=== PATIENT | male | born 1960 | race Caucasian/White ===

== ENCOUNTER 2023-07-19 14:03 | Emergency (ER) | payer OTHER, SELFPAY ==
--- NOTE | ~2023-07-19 | XR_ITS ---
EXAMINATION: XR HAND, LEFT CLINICAL INFORMATION: Unable to bend fingers. Left hand pain. COMPARISON: None available. TECHNIQUE: PA, lateral, and oblique views of the left hand. FINDINGS: The bones and soft tissues are normal. No fracture. Alignment is anatomic. Joint spaces are maintained. No erosions or soft tissue calcifications. XR/XR hand LT min 3V IMPRESSION: Unremarkable left hand.
--- NOTE | 2023-07-19 14:25 | ED_ITS ---
HPI - General Adult General Chief complaint: Extremity Injury, Upper Stated complaint: hand pain Time Seen by Provider: 07/19/23 15:51 Source: patient, RN notes reviewed and old records reviewed Mode of arrival: ambulatory History of Present Illness HPI narrative: 63-year-old male with past medical history of ETOH abuse/dependence presenting to the ED complaining of left hand pain/swelling s/p mechanical trip and fall 3 weeks ago. Patient admits he was recently admitted to [facility] for ETOH dependence/withdrawal. Denies more recent injury, history of gout, fever/chills, weakness, numbness/tingling Onset (ago): week(s) Related Data Previous Rx's Medication Instructions Recorded naproxen 500 mg tablet 500 mg PO BID PRN pain 10 days #20 07/19/23 tabs prednisone 20 mg tablet 40 mg PO DAILY 5 days #10 tabs 07/19/23 Allergies Allergy/AdvReac Type Severity Reaction Status Date / Time Penicillins [PENICILLINS] Allergy Unknown RASH Verified 07/19/23 14:25 Review of Systems Review of Systems: Constitutional:No Fever, No Chills ENT/Mouth: No Ear Pain, No Nasal Congestion, No sore throat, No Rhinorrhea, No Swallowing Difficulty Cardiovascular: No Chest Pain, No SOB Respiratory: No Cough, No Sputum, No Wheezing Gastrointestinal: No Nausea, No Vomiting, No Diarrhea, No Constipation, No Abdominal pain Musculoskeletal: + joint pain, No Myalgias, + Joint Swelling Skin: No Skin Lesions, No rash Neuro: No Weakness, No Numbness, No Paresthesias Yes all other systems are reviewed and are negative Constitutional: Constitutional: Reports as per [facility] Past Medical History Attestation statement: The following information was validated with the patient. Source: old records reviewed Social History Social History Advance Directives: No Advance Directives Information Provided: No Physical Exam ED Vital Signs: Vital Signs - 24 hr 07/19/23 14:26 Temperature 98 F Pulse Rate 100 Respiratory Rate 19 Blood Pressure 117/76 Pulse Oximetry 98 Oxygen Delivery Method Room Air BMI result Body Mass Index 20.9 Const General: cooperative, healthy appearing and no acute distress Orientation/consciousness: patient oriented x3 Limitations: no limitations HENMT Head: Yes normal to inspection and Yes atraumatic Ears: hearing grossly normal bilaterally General nose exam: Normal external nose present Face and sinus: Yes normal facial exam Eyes General: appearance normal, both eyes and all related structures EOM: EOMs intact bilaterally Neck Neck: Yes normal visual inspection and Yes no meningeal signs Resp Effort & Inspection: normal respiratory effort and no respiratory distress Cardio Rate: regular rate Heart sounds: S1 normal heart sound present and S2 normal heart sound present Peripheral pulses: radial pulses present and ulnar radial pulses present Skin Rashes: no rashes Wounds: no wounds Neuro Other: no tongue fasiculations or tremors General: patient oriented x3, tone normal and no meningeal signs Cranial nerves: Yes CN's II-XII intact bilaterally Gait exam (Neuro): Normal gait present Extrem Other: Left hand with diffuse swelling > 2-4th MCPs/digits. Diffusely tender to palpation. No erythema/warmth. Limited flexion of digits secondary to pain/swelling. No fluctuance/induration or crepitus. Neurovascularly intact. No snuffbox tenderness. Wrist nontender. Course Course Course Narrative: RME performed by Joseline Goss PA-C. Patient is a 63 year old assigned male at presenting to the emergency department with left hand pain. Imaging ordered. Patient placed back in the waiting room pending room availability and results. XR hand LT min 3V IMPRESSION: Unremarkable left hand. Results discussed with patient including worrisome signs and symptoms and strict return precautions, and when to return to the emergency department. They verbalized understanding and feel safe for discharge at this time. Medical Decision Making Medical Decision Making MDM Narrative: 63-year-old male with past medical history of ETOH abuse/dependence presenting to the ED complaining of left hand pain/swelling s/p mechanical trip and fall 3 weeks ago. On exam vital signs stable, NAD, nontoxic appearing, physical exam as noted above with diffuse left hand/digits swelling and tenderness. Limited ROM secondary to pain/swelling. No erythema/warmth. Concern for osteoarthritis vs ? Gout. Rule out subacute fracture. Low suspicion for septic joint/arthritis, abscess Plan: X-rays Please refer to course for remaining clinical decision making, interpretation of labs/imaging results, and discussions with consultants and/or family members. Differential Diagnosis Differential Diagnoses: The differential diagnosis associated with the presentation includes As above Independent Interpretation I performed an independent interpretation of an: Plain X-Ray Radiology Impression Discussion of test interpretation with radiology: I have reviewed the radiologist's reading. External Record Review External record reviewed: Inpatient record, Office record, Outpatient record, Prior outpatient labs, Prior outpatient radiology, Primary care record and Outside ED record Tests considered The following testing was considered but not selected: As above Prescription Management I considered prescription management with: Pain Medication and Antibiotic Discharge Plan Discharge Clinical Impression: Hand pain, Gout Patient Disposition: Home, Self-Care Instructions: Gout (ED), Arthralgia (ED) Additional Instructions: Your x-ray is unremarkable Prednisone is steroid please take as prescribed Naproxen as an anti-inflammatory/pain medication take, take with food & follow- up with orthopedics If symptoms persist or worsen or area begins look inflamed return to the ED Prescriptions: New prednisone 20 mg tablet 40 mg PO DAILY 5 Days Qty: 10 0RF naproxen 500 mg tablet 500 mg PO BID PRN (Reason: pain) 10 Days Qty: 20 0RF [place] [facility] [place] [facility] [place]Provider Group]
[2023-07-19 14:26] VITALS: BP 117/76; PULSE 100; RESP 19; TEMP 36.6; O2SAT 98; BMI 20.9
== END 2023-07-19 17:17 | disposition home or self-care (01) ==
PROVIDERS: Emergency Provider Emergency Medicine Emergency Medical Services
DX: M79.642 Pain in left hand (principal); M10.9 Gout, unspecified
CPT/HCPCS: 73130; 99283

== ENCOUNTER 2023-10-24 16:13 | Emergency (ER) | payer OTHER, SELFPAY ==
[2023-10-24 16:17] VITALS: BP 121/86; PULSE 89; RESP 18; TEMP 36.8; O2SAT 96; BMI 19.7
--- NOTE | 2023-10-24 16:20 | ED_ITS ---
HPI - Dental/Oral General Chief complaint: Dental/Oral Stated complaint: toothpain Time Seen by Provider: 10/24/23 16:20 Source: patient Mode of arrival: ambulatory Limitations: no limitations History of Present Illness HPI Narrative: Patient is a 63-year-old male presenting to the emergency department with complaint of right lower jaw pain since this morning. He states he broke a crown and was unable to reach his dentist today due to the holiday. Denies fever, denies any difficulty swallowing. Denies any drainage or discharge. He has not taken any OTC medications for his pain. MD Complaint: tooth pain and tooth injury Teeth map: 2 1. broken crown Onset (ago): hour(s) Duration: constant Severity: severe Relieving factors: nothing Exacerbating factors: nothing Context: history of dental caries Treatment prior to arrival: none Related Data Previous Rx's Medication Instructions Recorded naproxen 500 mg tablet 500 mg PO BID PRN pain 10 days #20 07/19/23 tabs prednisone 20 mg tablet 40 mg (2 x 20 mg) PO DAILY 5 days 07/19/23 #10 tabs oxycodone 5 mg tablet 5 mg PO Q8H PRN pain #9 tabs 10/24/23 Allergies Allergy/AdvReac Type Severity Reaction Status Date / Time Penicillins [PENICILLINS] Allergy Unknown RASH Verified 10/24/23 16:23 Review of Systems 2 Review of Systems: As per HPI. Yes all other systems are reviewed and are negative Constitutional: Constitutional: Reports as per HPI Physical Exam 2 Vital Signs: Vital Signs: Vital signs have been reviewed and appear to be correct. Blood pressure normal. Heart rate normal. Respiratory rate normal. Temperature normal. Oxygen saturation normal. Const: General: cooperative, healthy appearing and no acute distress O rientation/consciousness: oriented to person, oriented to place, oriented to time and patient oriented x3 Limitations: no limitations HEENT: Head: Yes normocephalic and Yes atraumatic Ears: external ears normal General nose exam: Normal external nose present Face and sinus: Yes face symmetric Mouth: oropharynx normal and moist mucous membranes Teeth and gingiva: poor dentition Teeth image: 1. broken crown, no edema or fluctuance Throat: Yes posterior oropharynx normal, Yes uvula midline and No uvular edema Eyes: Pupils: Equal, round and reactive pupils present Neck: Neck: Yes normal visual inspection, Yes full ROM and Yes supple L ymphatic: no lymphadenopathy noted Resp: Effort & Inspection: normal respiratory effort and able to speak in complete sentences Auscultation: clear to auscultation bilaterally Cardio: Rate: regular rate Rhythm: regular rhythm Heart sounds: S1 normal heart sound present and S2 normal heart sound present Skin: General skin exam: elasticity normal and turgor normal Neuro: General: oriented to person, oriented to place, oriented to time, patient oriented x3, moves all extremities, no focal motor deficits and CN's II- XI intact bilaterally Cranial nerves: Yes Equal, round and reactive pupils present Cognition (Neuro): normal cognition Extrem: General: Yes full ROM, Yes no pedal edema and Yes no calf tenderness Psych: Mental Status: mental status grossly normal Affect: normal affect Thought process: Normal thought process present Medical Decision Making Medical Decision Making MDM Narrative: Patient is a 63-year-old male presenting to the emergency department with complaint of right lower jaw pain since this morning. On exam patient is awake, A+Ox3, VS WNL, afebrile, normal neurological exam without focal deficits, physical exam findings as above. Given reported symptoms and physical exam findings, initial differential includes dental pain, dental infection, dental abscess. No evidence of infection or abscess on physical exam. INSPECTOR PROCESS reviewed. Will prescribe short course of oxycodone, advised patient to alternate Tylenol and ibuprofen and contact dentist tomorrow for an appointment. Return precautions discussed. Patient verbalized understanding of and agreement with plan. Differential Diagnosis Differential Diagnoses: The differential diagnosis associated with the presentation includes As per MDM. External Record Review External record reviewed: Inpatient record, Office record and Outpatient record Prescription Management I considered prescription management with: Pain Medication Discharge Plan Discharge Clinical Impression: Toothache Patient Disposition: Home, Self-Care Instructions: Toothache (ED) Additional Instructions: You were evaluated in the emergency department today for dental pain related to a broken crown. You should use 650 mg Tylenol or 600 mg ibuprofen every 6 hours as needed for pain. If necessary, you can alternate these medications every 3 hours. For example, at noon take Tylenol, then at 3:00 p.m. take ibuprofen, then at 6:00 p.m. take Tylenol, etc..You are being prescribed oxycodone for severe pain. It is important that you call your dentist to schedule an appointment as soon as possible. Return to the emergency department if you develop swelling, increased pain, difficulty swallowing, shortness of breath, fever or any other concerning symptoms. Prescriptions: New oxycodone 5 mg tablet 5 mg PO Q8H PRN (Reason: pain) Qty: 9 0RF Rx Instructions: Partial Fill upon patient request. No Action prednisone 20 mg tablet 40 mg PO DAILY 5 Days Qty: 10 0RF naproxen 500 mg tablet 500 mg PO BID PRN (Reason: pain) 10 Days Qty: 20 0RF
[2023-10-24] MEDS: Ibuprofen 600 MG TABLET PO (16:29)
[2023-10-24] MEDS: Acetaminophen 325 MG TABLET 975 MG PO (16:29)
== END 2023-10-24 16:31 | disposition home or self-care (01) ==
PROVIDERS: Emergency Provider Emergency Medicine
DX: K08.89 Other specified disorders of teeth and supporting structures (principal); F17.210 Nicotine dependence, cigarettes, uncomplicated; F12.90 Cannabis use, unspecified, uncomplicated
CPT/HCPCS: 99283

== ENCOUNTER 2023-11-04 06:16 | Inpatient (IN) | payer OTHER, SELFPAY ==
[2023-11-04 06:27] VITALS: BP 118/77; PULSE 80; PULSE 87; RESP 17; TEMP 36.6; O2SAT 98; BMI 21.8
[2023-11-04 07:07] LABS: Appearance Urine Clear; Color Urine Yellow; Glucose Urine UA Negative (Negative); Leukocyte Esterase Urine Negative (Negative); Nitrite Urine Negative (Negative); PH 5.5 (5.0-9.0); Specific Gravity - Urine >= 1.030 (1.005-1.025); Urine Blood Negative (Negative); Urine Ketones 15 mg/dL (Negative); Urine Protein Negative (Neg-Trace)
[2023-11-04 07:10] LABS: Amphetamine Screen Urine Not Detected (Not Detect); Barbiturates, Urine Not Detected (Not Detect); Benzodiazepines Screen Urine Not Detected (Not Detect); Cannabinoid Screen Urine POSITIVE (Not Detect); Cocaine Screen Urine POSITIVE (Not Detect); Fentanyl, urine Not Detected (Not Detect); Opiate Screen Urine Not Detected (Not Detect); Phencyclidine Screen Urine Not Detected (Not Detect)
[2023-11-04 07:18] LABS: MANUAL DIFF FLAG NO
[2023-11-04 07:19] LABS: Basophils Absolute Auto 0.1 X10*3/uL (0.0-0.2); Basophils Percent Auto 0.9 % (0-2); Eosinophils Absolute Auto 0.2 X10*3/uL (0.0-0.4); Hematocrit 41.1 % (42.0-52.0); Imm Gran Abs Auto 0.11 X10*3/uL (0.00-0.03); Imm Gran Pct Auto 1.1 % (0.0-0.4); Lymphocytes Absolute Auto 2.3 X10*3/uL (1.2-4.9); Lymphocytes Percent Auto 21.6 % (20-40); Mean Corpuscular HGB Conc 34.1 g/dl (31.0-36.0); Mean Corpuscular Hemoglobin 30.7 pg (27.0-33.0); Mean Corpuscular Volume 90.1 fL (80.0-98.0); Mean Platelet Volume 9.8 fL (9.4-12.4); Monocytes Absolute Auto 1.2 X10*3/uL (0.1-1.2); Monocytes Percent Auto 11.2 % (2-11); Neutrophils Absolute Auto 6.6 x10*3/uL (2.0-8.3); Neutrophils Percent Auto 63.2 % (45-73); Platelet Count 282 X10*3/uL (160-400); Red Blood Count 4.56 X10*6/uL (4.60-5.80); Red Cell Distribution Width 13.1 % (11.0-16.0); White Blood Count 10.5 X10*3/uL (4.8-10.8)
[2023-11-04 07:36] LABS: Acetaminophen LAB < 3 mcg/mL (<30); Salicylate < 5.0 mg/dL (15-30)
[2023-11-04 07:37] LABS: Alanine Aminotransferase 22 U/L (0-40); Albumin Level 4.4 g/dL (3.5-5.0); Alkaline Phosphatase 83 U/L (39-117); Anion Gap 13 (12-20); Aspartate Amino Transferase 48 U/L (5-37); Bilirubin Total 0.8 mg/dL (0.0-1.0); Blood Urea Nitrogen 25 mg/dL (9-16); Calcium 9.6 mg/dL (8.4-10.2); Carbon Dioxide 22 mmol/L (22-29); Chloride 108 mmol/L (96-108); Creatinine Clr Calc Pharmacy 93.3; Estimated Glomerular Filt Rate > 60; Ethanol < 10 mg/dL; Glucose Random 86 mg/dL (60-115); Sodium 139 mmol/L (135-145); Total Protein 7.8 g/dL (6.5-8.0)
--- NOTE | 2023-11-04 07:46 | ED.PSYCH ---
HPI - Psych General Chief Complaint: Psychiatric Symptoms Stated Complaint: SI WITH PLAN Time Seen by Provider: 11/04/23 07:39 Source: patient and RN notes reviewed Mode of arrival: EMS Limitations: no limitations History of Present Illness HPI Narrative: patient states he is more depressed since suffering the loss of a family member and he has a recent court appointment for stealing a car. He is considering jumping off of a bridge to kill himself complaint: suicidal ideation and feels depressed Related Data Home Medications Medication Instructions Recorded Confirmed diclofenac sodium 1 % topical gel 1 ea topical QID PRN pain 11/04/23 11/04/23 (Arthritis Pain (diclofenac)) gabapentin 600 mg tablet 600 mg PO TID 11/04/23 11/04/23 hydroxyzine pamoate 25 mg capsule 25 mg PO TID PRN anxiety 11/04/23 11/04/23 sertraline 100 mg tablet 200 mg PO DAILY 11/04/23 11/04/23 trazodone 100 mg tablet 100 mg PO BEDTIME 11/04/23 11/04/23 Allergies Allergy/AdvReac Type Severity Reaction Status Date / Time Penicillins [PENICILLINS] Allergy Unknown RASH Verified 10/24/23 16:23 Review of Systems Review of Systems: Yes all other systems are reviewed and are negative Neurologic: Denies Sensory deficit (Neuro) [facility] Social History Social History Advance Directives: No Advance Directives Information Provided: No Healthcare Proxy: No Guardian: No Physical Exam Vital Signs: Vital Signs: Last Vital Signs Temp 97.9 F 11/04/23 06:27 Pulse 87 11/04/23 06:27 Resp 17 11/04/23 06:27 BP 118/77 11/04/23 06:27 Pulse Ox 98 11/04/23 06:27 O2 Del Method Room Air 11/04/23 06:27 BMI result Body Mass Index 21.8 Const: Other: thin unkept male in no acute distress Orientation/consciousness: oriented to person and patient oriented x3 Limitations: no limitations HEENT: Head: Yes normal to inspection Ears: external ears normal General nose exam: Normal external nose present Mouth: Normal oral and palatal mucosa present and oropharynx normal Throat: Yes posterior oropharynx normal Eyes: General: appearance normal, both eyes and all related structures Neck: Other: supple Neck: Yes normal visual inspection Chest: Chest palpation & inspection: normal inspection of the chest Resp: Auscultation: clear to auscultation bilaterally Cardio: Jugular venous distension: no JVD Rate: regular rate Rhythm: regular rhythm Heart sounds: S1 normal heart sound present and S2 normal heart sound present GI: Inspection: Yes normal to inspection Palpation (GI): Soft to palpation, nontender and No hepatosplenomegaly present Auscultation: normal bowel sounds : General: Yes no CVA tenderness Back/Spine/Pelvis: Back: no CVA tenderness Skin: General skin exam: no rashes or lesions noted Neuro: General: oriented to person and patient oriented x3 Cranial nerves: Yes CN's II-XII intact bilaterally Motor exam (neuro): 5/5 motor strength present throughout Sensory Exam: No Sensory deficit (Neuro) Extrem: General: Yes normal to inspection Psych: Appearance: grossly normal Course Reevaluation(s) Reevaluation #1: Physician observation started now as patient needs to be observed and evaluated to see if the patient remains suicidal or it improves. PE currently NAD resting comfortably Time: 07:48 Reevaluation #2: crisis to admit the patient Time: 10:38 Medications Administered Generic Name Dose Route Start Last Admin Trade Name Freq PRN Reason Stop Dose Admin Gabapentin 600 mg 11/04/23 10:30 11/04/23 11:06 Gabapentin 600 Mg Tablet PO 600 mg TID NEENA Administration Sertraline HCl 200 mg 11/04/23 10:30 11/04/23 11:06 Sertraline Hcl 100 Mg Tablet PO 200 mg DAILY NEENA Administration Medical Decision Making Differential Diagnosis Differential Diagnoses: The differential diagnosis associated with the presentation includes (depression, suicidal ideation, polysubstance abuse) Admission/Observation Consideration of admission/observation: Escalation of care including admission/observation considered (upon arrival patient considered for admission) Consult Healthcare Provider Management of the patient was discussed with: Behavioral Health Provider Lab Data 11/04/23 07:13 11/04/23 07:13 Labs: Lab Results 11/04/23 11/04/23 Range/Units 06:47 07:13 WBC 10.5 (4.8-10.8) X10*3/uL RBC 4.56 L (4.60-5.80) X10*6/uL Hgb 14.0 (14.0-18.0) g/dl Hct 41.1 L (42.0-52.0) % MCV 90.1 (80.0-98.0) fL MCH 30.7 (27.0-33.0) pg MCHC 34.1 (31.0-36.0) g/dl RDW 13.1 (11.0-16.0) % Plt Count 282 (160-400) X10*3/uL MPV 9.8 (9.4-12.4) fL Immature Gran % (Auto) 1.1 H (0.0-0.4) % Neut % (Auto) 63.2 (45-73) % Lymph % (Auto) 21.6 (20-40) % Wallace % (Auto) 11.2 H (2-11) % Eos % (Auto) 2.0 (0-4) % Baso % (Auto) 0.9 (0-2) % Lymph # (Auto) 2.3 (1.2-4.9) X10*3/uL Wallace # (Auto) 1.2 (0.1-1.2) X10*3/uL Eos # (Auto) 0.2 (0.0-0.4) X10*3/uL Baso # (Auto) 0.1 (0.0-0.2) X10*3/uL Abs Immat Gran (auto) 0.11 H (0.00-0.03) X10*3/uL Absolute Neuts (auto) 6.6 (2.0-8.3) x10*3/uL Absolute Nucleated RBC 0.000 (0.0-0.012) X10*3/uL Nucleated RBC % (auto) 0.0 (0.0-0.2) /100WBC Sodium 139 (135-145) mmol/L Potassium 4.0 (3.3-5.1) mmol/L Chloride 108 (96-108) mmol/L Carbon Dioxide 22 (22-29) mmol/L Anion Gap 13 (12-20) BUN 25 H (9-16) mg/dL Creatinine 0.86 (0.5-1.4) mg/dL Estim Creat Clear Calc 93.3 Estimated GFR > 60 Random Glucose 86 (60-115) mg/dL Calcium 9.6 (8.4-10.2) mg/dL Total Bilirubin 0.8 (0.0-1.0) mg/dL AST 48 H (5-37) U/L ALT 22 (0-40) U/L Alkaline Phosphatase 83 (39-117) U/L Total Protein 7.8 (6.5-8.0) g/dL Albumin 4.4 (3.5-5.0) g/dL Urine Color Yellow Urine Appearance Clear Urine pH 5.5 (5.0-9.0) Ur Specific [place] >= 1.030 H (1.005-1.025) Urine Protein Negative (Neg-Trace) mg/dL Urine Glucose (UA) Negative (Negative) mg/dL Urine Ketones 15 (Negative) mg/dL Urine Blood Negative (Negative) Urine Nitrite Negative (Negative) Ur Leukocyte Esterase Negative (Negative) Urine RBC 0-2 (0-2) /HPF Urine WBC 0-5 (0-5) /HPF Ur Squamous Epith Cells 0-2 (0-2) /HPF Urine Bacteria None Seen (None Seen) Hyaline Casts 0-2 (0-2) /LPF Salicylates < 5.0 L (15-30) mg/dL Urine Opiates Screen Not Detected (Not Detect) Urine Fentanyl Screen Not Detected (Not Detect) Acetaminophen < 3 (<30) mcg/mL Ur Barbiturates Screen Not Detected (Not Detect) Ur Phencyclidine Scrn Not Detected (Not Detect) Ur Amphetamines Screen Not Detected (Not Detect) U Benzodiazepines Scrn Not Detected (Not Detect) Urine Cocaine Screen POSITIVE H (Not Detect) U Marijuana (THC) Screen POSITIVE H (Not Detect) Ethyl Alcohol < 10 mg/dL Independent Historian Clinical information obtained from an independent historian. History obtained from or confirmed by: EMS Chronic Conditions Patient?s care impacted by: Other (polysubstance and depression) Discharge Plan Discharge Clinical Impression: Depression, Suicidal behavior Patient Disposition: Still a Patient Prescriptions: No Action gabapentin 600 mg tablet 600 mg PO TID sertraline 100 mg tablet 200 mg PO DAILY trazodone 100 mg tablet 100 mg PO BEDTIME hydroxyzine pamoate 25 mg capsule 25 mg PO TID PRN (Reason: anxiety) diclofenac sodium [Arthritis Pain (diclofenac)] 1 % gel 1 ea topical QID PRN (Reason: pain) Rx Instructions: apply to affected area up to 4 times daily PRN pain.
[2023-11-04 08:25] LABS: Bacteria Urine None Seen (None Seen); Hyaline Casts Urine 0-2 /LPF (0-2); RBC Urine 0-2 /HPF (0-2); Squamous Epithelial Cell Urine 0-2 /HPF (0-2); WBC Urine 0-5 /HPF (0-5)
--- NOTE | 2023-11-04 10:26 | MHC.CARE ---
Patient evaluated by the CARE Team and will need an inpatient psychiatric admission, provider updated.
--- NOTE | 2023-11-04 10:42 | PHA.MEDREC ---
Pharmacy Consult ? Medication Reconciliation Pharmacy has completed the medication reconciliation.PHARMACY HAS REVIEWED THE MED REC DONE BY NURSING
[2023-11-04] MEDS: Gabapentin 600 MG TABLET PO ×3 (11:06→20:55)
[2023-11-04] MEDS: Sertraline HCL 100 MG TABLET 200 MG PO (11:06)
--- NOTE | 2023-11-04 12:18 | ECG_ITS ---
Test Reason : CHECK PROLONG QT Blood Pressure : / mmHG Vent. Rate : 097 BPM Atrial Rate : 097 BPM P-R Int : 132 ms QRS Dur : 076 ms QT Int : 354 ms P-R-T Axes : 052 031 047 degrees QTc Int : 449 ms Normal sinus rhythm Normal ECG When compared with ECG of 17-APR-2004 11:10, T wave amplitude has decreased in Anterior leads Referred By: Joe Puri Electronically Signed By:DEBBY MURPHY
[2023-11-04 14:48] LABS: COVID-19 Test Negative (Negative); IDNOW Serial# BCCEAD1C
[2023-11-04 15:20] VITALS: RESP 18
--- NOTE | 2023-11-04 15:23 | PC.NURSE ---
Aly resting quietly on couch in back room for most of the shift. Compliant with medication. Requested diclufenac gel which is not available in hospital pharmacy. Aly utilizes hearing aids so important to make sure he can repeat information back to see that he is understanding it. C/o pain on the bottom of his foot which is chronic. Passive SI. Denies HI/AVH. No behavioral concerns noted.
[2023-11-04] MEDS: hydrOXYzine HCL 25 MG TABLET PO (20:56)
[2023-11-04] MEDS: Acetaminophen 325 MG TABLET 650 MG PO (20:56)
[2023-11-04] MEDS: traZODone HCL 100 MG TABLET PO (20:57)
--- NOTE | 2023-11-05 01:30 | PC.ADMIT ---
An Setswana-speaking white male, aged 63 years was [facility] at 1750 following referral from [facility] ED and CARE team. Pt reports several IPLOC at [facility] and elsewhere. Pt was brought to [facility] ED via EMT following pt calling 911 reporting suicidal thinking with a plan to jump off of a bridge. Pt had recently been at [facility] this past summer and reported that medications had been changed, but were no longer effective. Pt had been living at [facility], but had begun smoking marijuana and was worried that he would be drug tested. Pt left and did not return. Pt reported he used cocaine at that time in a binge. Pt has a history of Etoh and opioid use. Pt has not used Etoh since this past summer, when he wound up in a coma. Pt has been reported not to have used opioids since his last O/D seven years ago. Pt has a history of suicide attempt by hanging in which the rope broke. Pt reports anxiety and depression as very high. Pt denied current SI and said can seek help from staff. Pt denies AVH, but said is spiritual. Pt was cooperative during admission. Pt is soft spoken and [place] bilaterally using hearing aids. Pt reports trauma history and dissociation, but no formal diagnosis of PTSD. Pt says has not therapist or psychiatric med provider since Covid pandemic. Pt says is open to medication management and providers. Medical issues include: history of coma, left hand and right foot nerve pain, hearing loss bilaterally, left hand weakness and impairment, memory issues. [id number] done, admission orders obtained, skin check done, treatment plan done, but not signed. Safety tool still needs to be done. Pt is resting in room on 15 minute safety checks at this time.
[2023-11-05 08:30] VITALS: BP 113/74; PULSE 83; RESP 18; TEMP 36.9; O2SAT 96
[2023-11-05 08:51] LABS: Estimated Average Glucose 97 mg/dL
[2023-11-05 09:04] LABS: Alanine Aminotransferase 21 U/L (0-40); Albumin Level 4.1 g/dL (3.5-5.0); Alkaline Phosphatase 89 U/L (39-117); Aspartate Amino Transferase 38 U/L (5-37); Bilirubin Direct 0.3 mg/dL (0.0-0.5); Bilirubin Total 0.8 mg/dL (0.0-1.0); Cholesterol 159 mg/dL (<200); HDL Cholesterol 41 mg/dL (>40); LDL Cholesterol Calculated 100 mg/dL (<100); Total Protein 7.3 g/dL (6.5-8.0); Triglycerides 91 mg/dL (<150)
[2023-11-05 09:19] LABS: Free T4 (Free Thyroxine) 0.92 ng/dL (0.71-1.85); Thyroid Stimulating Hormone 1.65 uIU/mL (0.32-4.0)
[2023-11-05] MEDS: Sertraline HCL 100 MG TABLET 200 MG PO (09:48)
[2023-11-05] MEDS: Gabapentin 600 MG TABLET PO ×3 (09:48→19:58)
--- NOTE | 2023-11-05 10:06 | P.HPPS_ITS ---
HPI Date of Service: 11/05/23 Chief Complaint: SI Sources of Information: patient interviewed, chart reviewed and crisis/core team assessment reviewed HPI Subjective Notes: Nelson Warning and Conditional Voluntary Narrative: P atient?is?a?63-year-old?man?with?history?of?depression,?PTSD,?alcohol?abuse,?bran car?abuse,?history?of?motor?tics?who?presents?for?depression?and? S I?in?the?face?of?recent?homelessness.??Patient?reports?decades?long?history?of?s evere?alcohol?abuse?however?he?has?been?sober? f rom?alcohol?since?the?summer.??Patient?was?living?in?a?sober?house?but?was?also? smoking?cannabis?to?help?with?anxiety. H e?abruptly?left?the?sober?house,?knowing?he?would?have?to?give?a?urine?test?and? would?be?kicked?out?anyway?for?smoking?cannabis. P atient?has?been?homeless?for?few?days?smoked?crack?cocaine?which?he?says?he?has? not?done?for?years.??Patient?feeling?overwhelmed D eveloped?SI?so?self?presented.??Patient?reports?frequent?flashbacks?with?trauma, ?including?nightmares.??Patient?agrees?to?add Zyprexa?regimen. Past Psychiatric History: P ast?psych?admissions,?most?recently?at[facility]this?past?summer Med?history:??Wellbutrin,?Abilify Medical Evaluation Reviewed: Yes PMFSH Family History: Defer Social History: Currently?homeless? Brother?in?[place] Substance History: Decades?long?alcohol?dependence Trauma History: History?of?trauma;?patient?did?not?disclose Diagnostics Vital Signs (24Hr): Vital Signs - 24 hr 11/04/23 15:20 Respiratory Rate 18 BMI result Body Mass Index 21.8 Labs 11/04/23 07:13 11/04/23 07:13 Labs: Laboratory Results - last 48 hr 11/04/23 11/04/23 11/04/23 06:47 07:13 14:30 WBC 10.5 RBC 4.56 L Hgb 14.0 Hct 41.1 L MCV 90.1 MCH 30.7 MCHC 34.1 RDW 13.1 Plt Count 282 MPV 9.8 Immature Gran % (Auto) 1.1 H Neut % (Auto) 63.2 Lymph % (Auto) 21.6 Meeker % (Auto) 11.2 H Eos % (Auto) 2.0 Baso % (Auto) 0.9 Lymph # (Auto) 2.3 Meeker # (Auto) 1.2 Eos # (Auto) 0.2 Baso # (Auto) 0.1 Abs Immat Gran (auto) 0.11 H Absolute Neuts (auto) 6.6 Absolute Nucleated RBC 0.000 Nucleated RBC % (auto) 0.0 Sodium 139 Potassium 4.0 Chloride 108 Carbon Dioxide 22 Anion Gap 13 BUN 25 H Creatinine 0.86 Estim Creat Clear Calc 93.3 Estimated GFR > 60 Random Glucose 86 Estimat Average Glucose Hemoglobin A1c % Calcium 9.6 Total Bilirubin 0.8 Direct Bilirubin AST 48 H ALT 22 Alkaline Phosphatase 83 Total Protein 7.8 Albumin 4.4 Triglycerides Cholesterol LDL Cholesterol, Calc HDL Cholesterol TSH Free T4 Urine Color Yellow Urine Appearance Clear Urine pH 5.5 Ur Specific Kent >= 1.030 H Urine Protein Negative Urine Glucose (UA) Negative Urine Ketones 15 Urine Blood Negative Urine Nitrite Negative Ur Leukocyte Esterase Negative Urine RBC 0-2 Urine WBC 0-5 Ur Squamous Epith Cells 0-2 Urine Bacteria None Seen Hyaline Casts 0-2 Salicylates < 5.0 L Urine Opiates Screen Not Detected Urine Fentanyl Screen Not Detected Acetaminophen < 3 Ur Barbiturates Screen Not Detected Ur Phencyclidine Scrn Not Detected Ur Amphetamines Screen Not Detected U Benzodiazepines Scrn Not Detected Urine Cocaine Screen POSITIVE H U Marijuana (THC) Screen POSITIVE H Ethyl Alcohol < 10 COVID-19 ([facility]) Negative COVID-19 Clin Com See Note 11/05/23 08:31 WBC RBC Hgb Hct MCV MCH MCHC RDW Plt Count MPV Immature Gran % (Auto) Neut % (Auto) Lymph % (Auto) Meeker % (Auto) Eos % (Auto) Baso % (Auto) Lymph # (Auto) Meeker # (Auto) Eos # (Auto) Baso # (Auto) Abs Immat Gran (auto) Absolute Neuts (auto) Absolute Nucleated RBC Nucleated RBC % (auto) Sodium Potassium Chloride Carbon Dioxide Anion Gap BUN Creatinine Estim Creat Clear Calc Estimated GFR Random Glucose Estimat Average Glucose 97 Hemoglobin A1c % 5.0 Calcium Total Bilirubin 0.8 Direct Bilirubin 0.3 AST 38 H ALT 21 Alkaline Phosphatase 89 Total Protein 7.3 Albumin 4.1 Triglycerides 91 Cholesterol 159 LDL Cholesterol, Calc 100 H HDL Cholesterol 41 TSH 1.65 Free T4 0.92 Urine Color Urine Appearance Urine pH Ur Specific Kent Urine Protein Urine Glucose (UA) Urine Ketones Urine Blood Urine Nitrite Ur Leukocyte Esterase Urine RBC Urine WBC Ur Squamous Epith Cells Urine Bacteria Hyaline Casts Salicylates Urine Opiates Screen Urine Fentanyl Screen Acetaminophen Ur Barbiturates Screen Ur Phencyclidine Scrn Ur Amphetamines Screen U Benzodiazepines Scrn Urine Cocaine Screen U Marijuana (THC) Screen Ethyl Alcohol COVID-19 ([facility]) COVID-19 Clin Com Meds/Allergies Meds Home Medications Medication Instructions Recorded Confirmed Type diclofenac sodium 1 % topical gel 1 ea topical QID PRN pain 11/04/23 11/04/23 History (Arthritis Pain (diclofenac)) gabapentin 600 mg tablet 600 mg PO TID 11/04/23 11/04/23 History hydroxyzine pamoate 25 mg capsule 25 mg PO TID PRN anxiety 11/04/23 11/04/23 History sertraline 100 mg tablet 200 mg PO DAILY 11/04/23 11/04/23 History trazodone 100 mg tablet 100 mg PO BEDTIME 11/04/23 11/04/23 History Allergies Allergies Allergy/AdvReac Type Severity Reaction Status Date / Time Penicillins [PENICILLINS] Allergy Unknown RASH Verified 10/24/23 16:23 Mental Status Exam Mental Status Exam Narrative: Pt is alert and oriented; behavior is cooperative, anxious,?twitchy?with?motor?tics; patient is not in distress; dressed in hospital attire disheveled?and?malodorous; mood is described as anxious and affect congruent; eye contact appropriate; Speech is normal rate, volume and prosody and not pressured; no psychomotor agitation/retardation present; thought process is organized and goal directed; Thought content is on tx; otherwise pertinent to relevant topics and without any delusional content, paranoid ideations or grandiosity; denies any SI/HI. There is no evidence of perceptual disturbance. Patients insight and judgment fair Assessment & Plan Assessment & Plan (1) Adjustment disorder with mixed disturbance of emotions and conduct: Status: Acute Code(s): F43.25 - Adjustment disorder with mixed disturbance of emotions and conduct Plan P atient?is?a?63-year-old?man?with?history?of?depression,?PTSD,?alcohol?abuse,?bran car?abuse?who?presents?for?depression?and? S I?in?the?face?of?recent?homelessness.??Patient?reports?decades?long?history?of?s evere?alcohol?abuse?however?he?has?been?sober? f rom?alcohol?since?the?summer.??Patient?was?living?in?a?sober?house?but?was?also? smoking?cannabis?to?help?with?anxiety. H e?abruptly?left?the?sober?house,?knowing?he?would?have?to?give?a?urine?test?and? would?be?kicked?out?anyway?for?smoking?cannabis. P atient?has?been?homeless?for?few?days?smoked?crack?cocaine?which?he?says?he?has? not?done?for?years.??Patient?feeling?overwhelmed D eveloped?SI?so?self?presented.??Patient?reports?frequent?flashbacks?with?trauma, ?including?nightmares.??Patient?agrees?to?add Zyprexa?regimen. -patient?stable?until?left?sober?living,?afraid?of?getting?caught?for?smoking?ca nnabis?which?triggered?depressed?and?anxious;? P atient?also?coming?down?from?cocaine.??Agrees?to?add?Zyprexa?to?regimen?to?deal? with?anxiety Plan:?CV? Q?15?minute?checks? Start?Zyprexa?2.5?mg?b.i.d. Patient educated on: diagnosis, medication risk/benefits and substance abuse Informed Consent: understands Reason for continued inpatient stay Substantial Risk for: rapid decompensation Statement Statement: I have reviewed the history and physical and performed a pertinent examination on my patient. No changes have occurred unless specified. If the History and Physical was not performed prior to admission, the Hospitalist's service will be consulted for completing the admission physical. Time Spent With Patient Time: Total time managing care of this patient today ____ minutes.
[2023-11-05 10:34] LABS: Folate 16.9 ng/mL (> or = 4.0); Vitamin B12 417 pg/mL (200-900)
[2023-11-05] MEDS: hydrOXYzine HCL 25 MG TABLET PO ×2 (12:41→19:58)
[2023-11-05] MEDS: Acetaminophen 325 MG TABLET 650 MG PO ×2 (12:41→19:58)
[2023-11-05] MEDS: OLANZapine 2.5 MG TABLET PO ×2 (15:23→19:59)
[2023-11-05] MEDS: Nicotine Polacrilex 2 MG GUM BUCCAL (16:02)
[2023-11-05 16:45] VITALS: BP 123/74; PULSE 97; RESP 16; TEMP 36.1; O2SAT 94
[2023-11-05] MEDS: Nicotine 21 MG PATCH.TD24 TRANSDERMA (17:04)
[2023-11-05] MEDS: Ibuprofen 600 MG TABLET PO (17:06)
[2023-11-05] MEDS: cloNIDine HCL 0.1 MG TABLET PO (19:58)
[2023-11-05] MEDS: traZODone HCL 50 MG TABLET PO (19:59)
[2023-11-05] MEDS: traZODone HCL 100 MG TABLET PO (19:59)
[2023-11-06 06:00] VITALS: BP 103/50; PULSE 72; RESP 18
[2023-11-06] MEDS: OLANZapine 2.5 MG TABLET PO ×2 (08:08→20:33)
[2023-11-06] MEDS: Sertraline HCL 100 MG TABLET 200 MG PO (08:08)
[2023-11-06] MEDS: Gabapentin 600 MG TABLET PO ×3 (08:08→20:33)
[2023-11-06] MEDS: Nicotine 21 MG PATCH.TD24 TRANSDERMA (08:08)
[2023-11-06] MEDS: Ibuprofen 600 MG TABLET PO (16:14)
[2023-11-06 16:20] VITALS: BP 103/67; PULSE 82; RESP 16; TEMP 36.4; O2SAT 97
--- NOTE | 2023-11-06 17:15 | HO.PSYCHPN ---
Subjective Subjective Date of Service: 11/06/23 Reason For Visit: SI Subjective Notes: 3 Day Healthcare Proxy: No Guardianship: No Medical Problems Affecting Mental Status: No Interim History: Pt seen, reviewed in the team meeting. Reports he is not in pain, planning discharge on 11/08. Believes he will go to [place] to be with family. Denies sx of anxiety, depression today. Reports medications are without SE and no changes need to be made. Medication Compliance: Yes Side effects from medications: No Attending Groups: No Review of Systems Acute medical concerns: No Medical Review of Systems: unchanged Review of Systems Review of Systems Yes all other systems are reviewed and are negative Mental Status Exam Mental Status Exam Patient Appearance: Appropriate Patient Orientation: Person, Place, Time and Situation Level of Consciousness: Alert Patient Behavior: Appropriate, Talkative, Cooperative and Good Eye Contact Mood Description: Appropriate Affect Description: Appropriate Patient Cognition Impaired: No Ability to Follow Directions: Good Speech Pattern: Spontaneous Speech Memory Description: Episodic Impaired Hallucinations: None Delusions: Not Present Perceptual Disturbances: Derealization Thought Process: Distracted and Goal Oriented Thought Content: positive for Goal Oriented Judgement: Fair Diagnostics Vital Signs (24Hr): Vital Signs - 24 hr 11/06/23 06:00 11/06/23 16:20 Temperature 97.5 F Pulse Rate 72 82 Respiratory Rate 18 16 Blood Pressure 103/50 L 103/67 Pulse Oximetry 97 Oxygen Delivery Method Room Air BMI result Body Mass Index 21.8 Labs 11/04/23 07:13 11/04/23 07:13 Labs: Laboratory Results - last 48 hr 11/05/23 08:31 Estimat Average Glucose 97 Hemoglobin A1c % 5.0 Total Bilirubin 0.8 Direct Bilirubin 0.3 AST 38 H ALT 21 Alkaline Phosphatase 89 Total Protein 7.3 Albumin 4.1 Triglycerides 91 Cholesterol 159 LDL Cholesterol, Calc 100 H HDL Cholesterol 41 Vitamin B12 417 Folate 16.9 TSH 1.65 Free T4 0.92 Medications Medications Current Medications Acetaminophen (Acetaminophen 325 Mg Tablet) 650 mg PO Q6H PRN PRN Reason: Headache/Pain Mild Scale (1-3) Last Admin: 11/05/23 19:58 Dose: 650 mg Al Hydroxide/Mg Hydroxide (Magnesium Hydrox/Alum Hydrox 30 Ml Oral.Susp) 30 ml PO Q6H PRN PRN Reason: Heartburn/Nausea Clonidine HCl (Clonidine Hcl 0.1 Mg Tablet) 0.1 mg PO Q4H PRN; Protocol PRN Reason: anxiety Last Admin: 11/05/23 19:58 Dose: 0.1 mg Gabapentin (Gabapentin 600 Mg Tablet) 600 mg PO TID [facility] Last Admin: 11/06/23 13:56 Dose: 600 mg Hydroxyzine HCl (Hydroxyzine Hcl 25 Mg Tablet) 25 mg PO TID PRN PRN Reason: anxiety Last Admin: 11/05/23 19:58 Dose: 25 mg Ibuprofen (Ibuprofen 600 Mg Tablet) 600 mg PO Q8H PRN PRN Reason: Pain, Mild (Pain Scale 1-3) Last Admin: 11/06/23 16:14 Dose: 600 mg Magnesium Hydroxide (Milk Of Magnesia 30 Ml Oral.Susp) 30 ml PO DAILY PRN PRN Reason: Constipation Nicotine (Nicotine 21 Mg Patch.Td24) 21 mg TRANSDERMA DAILY [facility] Last Admin: 11/06/23 08:08 Dose: 21 mg Nicotine Polacrilex (Nicotine Polacrilex Lozenge 4 Mg Lozenge) 4 mg BUCCAL Q2H PRN PRN Reason: Nicotine Cravings Olanzapine (Olanzapine 2.5 Mg Tablet) 2.5 mg PO BID [facility] Last Admin: 11/06/23 08:08 Dose: 2.5 mg Sertraline HCl (Sertraline Hcl 100 Mg Tablet) 200 mg PO DAILY [facility] Last Admin: 11/06/23 08:08 Dose: 200 mg Trazodone HCl (Trazodone Hcl 100 Mg Tablet) 100 mg PO BEDTIME [facility] Last Admin: 11/05/23 19:59 Dose: 100 mg Trazodone HCl (Trazodone Hcl 50 Mg Tablet) 50 mg PO BEDTIME MRX1 PRN PRN Reason: Insomnia Last Admin: 11/05/23 19:59 Dose: 50 mg Allergies Allergies Allergy/AdvReac Type Severity Reaction Status Date / Time Penicillins [PENICILLINS] Allergy Unknown RASH Verified 10/24/23 16:23 Assessment & Plan Assessment & Plan (1) Adjustment disorder with mixed disturbance of emotions and conduct: Status: Acute Code(s): F43.25 - Adjustment disorder with mixed disturbance of emotions and conduct Plan Patient?is?a?63-year-old?man?with?history?of?depression,?PTSD,?alcohol?abuse,?cocaine?abuse?who?presents?for?depression?and? SI?in?the?face?of?recent?homelessness.??Patient?reports?decades?long?history?of?severe?alcohol?abuse?however?he?has?been?sober? from?alcohol?since?the?summer.??Patient?was?living?in?a?sober?house?but?was?also?smoking?cannabis?to?help?with?anxiety. He?abruptly?left?the?sober?house,?knowing?he?would?have?to?give?a?urine?test?and?would?be?kicked?out?anyway?for?smoking?cannabis. Patient?has?been?homeless?for?few?days?smoked?crack?cocaine?which?he?says?he?has?not?done?for?years.??Patient?feeling?overwhelmed Developed?SI?so?self?presented.??Patient?reports?frequent?flashbacks?with?trauma,?including?nightmares.??Patient?agrees?to?add Zyprexa?regimen. -patient?stable?until?left?sober?living,?afraid?of?getting?caught?for?smoking?cannabis?which?triggered?depressed?and?anxious;? Patient?also?coming?down?from?cocaine.??Agrees?to?add?Zyprexa?to?regimen?to?deal?with?anxiety Plan:?CV? Q?15?minute?checks? Start?Zyprexa?2.5?mg?b.i.d. 11/06/23 Continue current regime and plan of care. Patient educated on: therapeutic strategies Informed Consent: understands Reason for continued inpatient stay Substantial Risk for: rapid decompensation Time Spent With Patient Time: Total time managing care of this patient today ____ minutes.
[2023-11-06] MEDS: traZODone HCL 100 MG TABLET PO (20:33)
[2023-11-06] MEDS: hydrOXYzine HCL 25 MG TABLET PO (20:33)
[2023-11-07 07:00] VITALS: BMI 20.9
[2023-11-07 08:45] VITALS: BP 105/56; PULSE 63; RESP 16; TEMP 36.1; O2SAT 95
[2023-11-07] MEDS: Nicotine Polacrilex Lozenge 4 MG LOZENGE BUCCAL (09:17)
[2023-11-07] MEDS: Ibuprofen 600 MG TABLET PO (09:17)
[2023-11-07] MEDS: OLANZapine 2.5 MG TABLET PO ×2 (09:17→20:46)
[2023-11-07] MEDS: Gabapentin 600 MG TABLET PO ×3 (09:17→20:45)
[2023-11-07] MEDS: Sertraline HCL 100 MG TABLET 200 MG PO (09:17)
--- NOTE | 2023-11-07 09:31 | P.PNPSI_ITS ---
Subjective Subjective Date of Service: 11/07/23 Reason For Visit: SI Interim History: met with patient; discussed with team pt reports he is feeling much better; denies depression and says anxiety is much less. Pt says zyprexa has been helpful and wants to continue. Pt says he wants to dc tomorrow and plans to go [place] to live with his brother, something he says he's been contemplating for some time now. Mental Status Exam Mental Status Exam Narrative: Pt is alert and oriented; behavior is cooperative, friendly and calm; patient is not in distress; dressed in casual attire, well groomed with good hygiene; mood is described as good and affect congruent; eye contact appropriate; Speech is normal rate, volume and prosody and not pressured; no psychomotor agitation/retardation present; some minor motor tics; thought process is organized and goal directed; Thought content is on discharge; otherwise pertinent to relevant topics and without any delusional content, paranoid ideations or grandiosity; denies any SI/HI. There is no evidence of perceptual disturbance. Patients insight and judgment appear intact. Diagnostics Vital Signs (24Hr): Vital Signs - 24 hr 11/06/23 16:20 11/07/23 08:45 Temperature 97.5 F 97 F Pulse Rate 82 63 Respiratory Rate 16 16 Blood Pressure 103/67 105/56 L Pulse Oximetry 97 95 Oxygen Delivery Method Room Air Room Air BMI result Body Mass Index 21.8 Labs 11/04/23 07:13 11/04/23 07:13 Labs: Laboratory Results - last 48 hr 11/05/23 08:31 Vitamin B12 417 Folate 16.9 Medications Medications Current Medications Acetaminophen (Acetaminophen 325 Mg Tablet) 650 mg PO Q6H PRN PRN Reason: Headache/Pain Mild Scale (1-3) Last Admin: 11/05/23 19:58 Dose: 650 mg Al Hydroxide/Mg Hydroxide (Magnesium Hydrox/Alum Hydrox 30 Ml Oral.Susp) 30 ml PO Q6H PRN PRN Reason: Heartburn/Nausea Clonidine HCl (Clonidine Hcl 0.1 Mg Tablet) 0.1 mg PO Q4H PRN; Protocol PRN Reason: anxiety Last Admin: 11/05/23 19:58 Dose: 0.1 mg Gabapentin (Gabapentin 600 Mg Tablet) 600 mg PO TID [facility] Last Admin: 11/07/23 09:17 Dose: 600 mg Hydroxyzine HCl (Hydroxyzine Hcl 25 Mg Tablet) 25 mg PO TID PRN PRN Reason: anxiety Last Admin: 11/06/23 20:33 Dose: 25 mg Ibuprofen (Ibuprofen 600 Mg Tablet) 600 mg PO Q8H PRN PRN Reason: Pain, Mild (Pain Scale 1-3) Last Admin: 11/07/23 09:17 Dose: 600 mg Magnesium Hydroxide (Milk Of Magnesia 30 Ml Oral.Susp) 30 ml PO DAILY PRN PRN Reason: Constipation Nicotine (Nicotine 21 Mg Patch.Td24) 21 mg TRANSDERMA DAILY [facility] Last Admin: 11/07/23 09:17 Dose: Not Given Nicotine Polacrilex (Nicotine Polacrilex Lozenge 4 Mg Lozenge) 4 mg BUCCAL Q2H PRN PRN Reason: Nicotine Cravings Last Admin: 11/07/23 09:17 Dose: 4 mg Olanzapine (Olanzapine 2.5 Mg Tablet) 2.5 mg PO BID [facility] Last Admin: 11/07/23 09:17 Dose: 2.5 mg Sertraline HCl (Sertraline Hcl 100 Mg Tablet) 200 mg PO DAILY [facility] Last Admin: 11/07/23 09:17 Dose: 200 mg Trazodone HCl (Trazodone Hcl 100 Mg Tablet) 100 mg PO BEDTIME [facility] Last Admin: 11/06/23 20:33 Dose: 100 mg Trazodone HCl (Trazodone Hcl 50 Mg Tablet) 50 mg PO BEDTIME MRX1 PRN PRN Reason: Insomnia Last Admin: 11/05/23 19:59 Dose: 50 mg Allergies Allergies Allergy/AdvReac Type Severity Reaction Status Date / Time Penicillins [PENICILLINS] Allergy Unknown RASH Verified 10/24/23 16:23 Assessment & Plan Assessment & Plan (1) Adjustment disorder with mixed disturbance of emotions and conduct: Status: Acute Code(s): F43.25 - Adjustment disorder with mixed disturbance of emotions and conduct Plan P atient?is?a?63-year-old?man?with?history?of?depression,?PTSD,?alcohol?abuse,?bran car?abuse?who?presents?for?depression?and? S I?in?the?face?of?recent?homelessness.??Patient?reports?decades?long?history?of?s evere?alcohol?abuse?however?he?has?been?sober? f rom?alcohol?since?the?summer.??Patient?was?living?in?a?sober?house?but?was?also? smoking?cannabis?to?help?with?anxiety. H e?abruptly?left?the?sober?house,?knowing?he?would?have?to?give?a?urine?test?and? would?be?kicked?out?anyway?for?smoking?cannabis. P atient?has?been?homeless?for?few?days?smoked?crack?cocaine?which?he?says?he?has? not?done?for?years.??Patient?feeling?overwhelmed D eveloped?SI?so?self?presented.??Patient?reports?frequent?flashbacks?with?trauma, ?including?nightmares.??Patient?agrees?to?add Zyprexa?regimen. -patient?stable?until?left?sober?living,?afraid?of?getting?caught?for?smoking?ca nnabis?which?triggered?depressed?and?anxious;? P atient?also?coming?down?from?cocaine.??Agrees?to?add?Zyprexa?to?regimen?to?deal? with?anxiety Plan:?CV? Q?15?minute?checks? Start?Zyprexa?2.5?mg?b.i.d. 11/06/23 Continue current regime and plan of care. 11/07 pt mood is good; anxiety resolved; no SI. pt is focused on discharge. Does not want appointments and planing to move to [place] with his brother. Pt of course remains vulnerable to relapse and mood dysregulation however, he is not in imminent risk for harm to self or others and appropriate for dc Patient educated on: diagnosis and medication risk/benefits Informed Consent: understands Reason for continued inpatient stay Substantial Risk for: stable for discharge Time Spent With Patient Time: Total time managing care of this patient today ____ minutes.
[2023-11-07 16:50] VITALS: BP 95/58; PULSE 75; RESP 16; TEMP 36.4; O2SAT 97
--- NOTE | 2023-11-07 17:20 | PM.PSYDC ---
DS: Providers Provider Date of Service: 11/08/23 Date of admission: 11/04/23 18:47 Date of discharge: 11/08/23 Primary care physician: Unknown Physician Attending physician on admission: Reji Flannery Attending physician on discharge: Reji Flannery DS: Diagnosis Discharge Diagnosis (1) Adjustment disorder with mixed disturbance of emotions and conduct: Status: Acute DS: Medications Discharge Medications Home Medications: Previous Rx's Medication Instructions Recorded gabapentin 600 mg tablet 600 mg PO TID 30 days #90 tabs 11/07/23 hydroxyzine pamoate 25 mg capsule 25 mg PO TID PRN anxiety 30 days 11/07/23 #60 caps nicotine (polacrilex) 4 mg buccal 4 mg buccal Q2H PRN Nicotine 11/07/23 lozenge Cravings 30 days #108 ea olanzapine 2.5 mg tablet 2.5 mg PO BID 30 days #60 tabs 11/07/23 sertraline 100 mg tablet 200 mg (2 x 100 mg) PO DAILY 30 11/07/23 days #60 tabs trazodone 100 mg tablet 100 mg PO BEDTIME 30 days #30 tabs 11/07/23 Mental Status Exam Mental Status Exam Narrative: Pt is alert and oriented; behavior is cooperative, friendly and calm; patient is not in distress; dressed in casual attire, well groomed with good hygiene; mood is described as good and affect congruent; eye contact appropriate; Speech is normal rate, volume and prosody and not pressured; no psychomotor agitation/retardation present; some minor motor tics; thought process is organized and goal directed; Thought content is on discharge; otherwise pertinent to relevant topics and without any delusional content, paranoid ideations or grandiosity; denies any SI/HI. There is no evidence of perceptual disturbance. Patients insight and judgment appear intact. Data Data Completed and Pending Completed studies during hospitalization [Text1]: 11/04/23 11/04/23 11/04/23 06:47 07:13 14:30 WBC 10.5 RBC 4.56 L Hgb 14.0 Hct 41.1 L MCV 90.1 MCH 30.7 MCHC 34.1 RDW 13.1 Plt Count 282 MPV 9.8 Immature Gran % (Auto) 1.1 H Neut % (Auto) 63.2 Lymph % (Auto) 21.6 [place] % (Auto) 11.2 H Eos % (Auto) 2.0 Baso % (Auto) 0.9 Lymph # (Auto) 2.3 [place] # (Auto) 1.2 Eos # (Auto) 0.2 Baso # (Auto) 0.1 Abs Immat Gran (auto) 0.11 H Absolute Neuts (auto) 6.6 Absolute Nucleated RBC 0.000 Nucleated RBC % (auto) 0.0 Sodium 139 Potassium 4.0 Chloride 108 Carbon Dioxide 22 Anion Gap 13 BUN 25 H Creatinine 0.86 Estim Creat Clear Calc 93.3 Estimated GFR > 60 Random Glucose 86 Estimat Average Glucose Hemoglobin A1c % Calcium 9.6 Total Bilirubin 0.8 Direct Bilirubin AST 48 H ALT 22 Alkaline Phosphatase 83 Total Protein 7.8 Albumin 4.4 Triglycerides Cholesterol LDL Cholesterol, Calc HDL Cholesterol Vitamin B12 Folate TSH Free T4 Urine Color Yellow Urine Appearance Clear Urine pH 5.5 Ur Specific [place] >= 1.030 H Urine Protein Negative Urine Glucose (UA) Negative Urine Ketones 15 Urine Blood Negative Urine Nitrite Negative Ur Leukocyte Esterase Negative Urine RBC 0-2 Urine WBC 0-5 Ur Squamous Epith Cells 0-2 Urine Bacteria None Seen Hyaline Casts 0-2 Salicylates < 5.0 L Urine Opiates Screen Not Detected Urine Fentanyl Screen Not Detected Acetaminophen < 3 Ur Barbiturates Screen Not Detected Ur Phencyclidine Scrn Not Detected Ur Amphetamines Screen Not Detected U Benzodiazepines Scrn Not Detected Urine Cocaine Screen POSITIVE H U Marijuana (THC) Screen POSITIVE H Ethyl Alcohol < 10 COVID-19 ([facility]) Negative COVID-19 Clin Com See Note 11/05/23 08:31 WBC RBC Hgb Hct MCV MCH MCHC RDW Plt Count MPV Immature Gran % (Auto) Neut % (Auto) Lymph % (Auto) [place] % (Auto) Eos % (Auto) Baso % (Auto) Lymph # (Auto) [place] # (Auto) Eos # (Auto) Baso # (Auto) Abs Immat Gran (auto) Absolute Neuts (auto) Absolute Nucleated RBC Nucleated RBC % (auto) Sodium Potassium Chloride Carbon Dioxide Anion Gap BUN Creatinine Estim Creat Clear Calc Estimated GFR Random Glucose Estimat Average Glucose 97 Hemoglobin A1c % 5.0 Calcium Total Bilirubin 0.8 Direct Bilirubin 0.3 AST 38 H ALT 21 Alkaline Phosphatase 89 Total Protein 7.3 Albumin 4.1 Triglycerides 91 Cholesterol 159 LDL Cholesterol, Calc 100 H HDL Cholesterol 41 Vitamin B12 417 Folate 16.9 TSH 1.65 Free T4 0.92 Urine Color Urine Appearance Urine pH Ur Specific [place] Urine Protein Urine Glucose (UA) Urine Ketones Urine Blood Urine Nitrite Ur Leukocyte Esterase Urine RBC Urine WBC Ur Squamous Epith Cells Urine Bacteria Hyaline Casts Salicylates Urine Opiates Screen Urine Fentanyl Screen Acetaminophen Ur Barbiturates Screen Ur Phencyclidine Scrn Ur Amphetamines Screen U Benzodiazepines Scrn Urine Cocaine Screen U Marijuana (THC) Screen Ethyl Alcohol COVID-19 ([facility]) COVID-19 Clin Com DS: Summary Hospital Course Hospital Course: Patient?is?a?63-year-old?man?with?history?of?depression,?PTSD,?alcohol?abuse,?cocaine?abuse?who?presents?for?depression?and? SI?in?the?face?of?recent?homelessness.??Patient?reports?decades?long?history?of?severe?alcohol?abuse?however?he?has?been?sober? from?alcohol?since?the?summer.??Patient?was?living?in?a?sober?house?but?was?also?smoking?cannabis?to?help?with?anxiety. He?abruptly?left?the?sober?house,?knowing?he?would?have?to?give?a?urine?test?and?would?be?kicked?out?anyway?for?smoking?cannabis. Patient?has?been?homeless?for?few?days?smoked?crack?cocaine?which?he?says?he?has?not?done?for?years.??Patient?feeling?overwhelmed Developed?SI?so?self?presented.??Patient?reports?frequent?flashbacks?with?trauma,?including?nightmares.??Patient?agrees?to?add Zyprexa?regimen. -patient?stable?until?left?sober?living,?afraid?of?getting?caught?for?smoking?cannabis?which?triggered?depressed?and?anxious;? Patient?also?coming?down?from?cocaine.??Agrees?to?add?Zyprexa?to?regimen?to?deal?with?anxiety Hospital course: -Started?Zyprexa?2.5?mg?b.i.d. -Reports he is not in pain, planning discharge on 11/08. Believes he will go to [place] to be with family. Denies sx of anxiety, depression today. Reports medications are without SE and no changes need to be made. -continued to report who was in a good mood, no anxiety, no SI and wanting discharge.Does not want appointments and planing to move to [place] with his brother. Pt of course remains vulnerable to relapse and mood dysregulation however, he is not in imminent risk for harm to self or others and appropriate for dc Time spent discussing smoking cessation with patient: 3 to 10 minutes Status at Discharge Functional status at discharge: independent ambulation Overall status at discharge: patient is back to baseline Time Spent with Patient Time attestation: Total time managing care of this patient today ____ minutes. Time spent: Less than 30 minutes Discharge Plan Discharge Anticipated Discharge Date/Time: 11/08/23 23:00 Patient Disposition: [facility] Discharge Diagnosis: Adjustment disorder, with mixed disturbance of mood and conduct, in full remission [facility]errals: [facility]: [facility] [Other] - 1 Week (Patient may self present and have evaluation done for outpatient therapy and psychiatry services ) [facility] : [facility] [Other] - 1 Week (Patient may self present Saturday through Saturday 8 am-8 pm and Saturday and Saturday 9 am-5 pm to be evaluated for therapy and psychiatry services.) Rosanna Man NP [Nurse Practitioner] - (OFFICE WILL CALL US OR PT. WITH FOLLOW-UP APPOINTMENT.) Discharge Medications: New nicotine (polacrilex) 4 mg Lozenge 4 mg buccal Q2H PRN (Reason: Nicotine Cravings) 30 Days Qty: 108 0RF olanzapine 2.5 mg Tablet 2.5 mg PO BID 30 Days Qty: 60 0RF Continued gabapentin 600 mg tablet 600 mg PO TID 30 Days Qty: 90 0RF sertraline 100 mg tablet 200 mg PO DAILY 30 Days Qty: 60 0RF trazodone 100 mg tablet 100 mg PO BEDTIME 30 Days Qty: 30 0RF hydroxyzine pamoate 25 mg capsule 25 mg PO TID PRN (Reason: anxiety) 30 Days Qty: 60 0RF Discontinued diclofenac sodium [Arthritis Pain (diclofenac)] 1 % gel 1 ea topical QID PRN (Reason: pain) Rx Instructions: apply to affected area up to 4 times daily PRN pain. Discharge Orders: Discharge Order (Routine); Ordered 11/08/23 Ordered By: Reji Flannery Diet: Regular diet Activity on Discharge: As tolerated Stand Alone Forms: Patient Portal Discharge page, Community Support Care Plan Goals: Maintain mood and safe behaviors Take medications as prescribed Continue to pursue sobriety Practice coping skills Continue with outpatient providers and reach out to them as needed Health Concerns: Mood stability and behaviors Sobriety Chronic b/l leg pain Plan of Treatment: Follow up with your PCP, psychiatric provider and other outpatient providers regarding above concerns Take medications as prescribed Assessment: Risk assessment at time of discharge:? Patient was interviewed prior to discharge and found to be fully oriented and without any SI or HI. Patient has improved insight and judgment and wants to continue treatment. Patient is not in imminent risk of harm to self or others and has a safety plan that includes presenting to the closest ER or calling 911 if feeling unsafe.? Patient has been observed closely by nursing and unit staff throughout admission; patient has not engaged in any behaviors that suggest dangerousness to self or others and has demonstrated appropriate behaviors and impulse control Discharge Date/Time: 11/08/23 10:59
[2023-11-07] MEDS: hydrOXYzine HCL 25 MG TABLET PO (20:46)
[2023-11-07] MEDS: traZODone HCL 100 MG TABLET PO (20:46)
[2023-11-08 08:00] VITALS: BP 101/66; PULSE 69; RESP 16; TEMP 37.3; O2SAT 96
[2023-11-08] MEDS: Gabapentin 600 MG TABLET PO (09:16)
[2023-11-08] MEDS: Sertraline HCL 100 MG TABLET 200 MG PO (09:16)
[2023-11-08] MEDS: Naloxone HCl Nasal TAKE HOME 4 MG SPRAY 8 MG NOSTRILALT (09:17)
[2023-11-08] MEDS: OLANZapine 2.5 MG TABLET PO (09:17)
[2023-11-08] MEDS: Nicotine Polacrilex Lozenge 4 MG LOZENGE BUCCAL (09:20)
[2023-11-08] MEDS: Ibuprofen 600 MG TABLET PO (09:20)
== END 2023-11-08 10:59 | disposition home or self-care (01) | DRG 882 ==
LOC: HO.ED 10:47 → HO.PM5 18:52
PROVIDERS: Admitting Provider Psychiatry & Neurology Psychiatry; Emergency Provider Emergency Medicine; Visit Provider Psychiatry & Neurology Psychiatry
DX: F43.25 Adjustment disorder with mixed disturbance of emotions and conduct (principal); R45.851 Suicidal ideations; Z59.02 Unsheltered homelessness; F17.210 Nicotine dependence, cigarettes, uncomplicated; Z71.6 Tobacco abuse counseling; F10.10 Alcohol abuse, uncomplicated; Z20.822 Contact with and (suspected) exposure to COVID-19; Z79.899 Other long term (current) drug therapy
CPT/HCPCS: 36415; 80053; 80061; 80076; 80143; 80179; 80307; 81001; 82607; 82746; 83036; 84439; 84443; 85025; 87635; 93005; 99285; S9485

== ENCOUNTER → 2023-11-04 12:18 | Outpatient (BNV) | payer OTHER, SELFPAY | PROVIDERS: Admitting Provider Psychiatry & Neurology Psychiatry; Emergency Provider Emergency Medicine; Visit Provider Internal Medicine | DX: I45.81 Long QT syndrome (principal) | CPT/HCPCS: 93010 ==

== ENCOUNTER → 2023-11-04 18:47 | Outpatient (BNV) | payer OTHER, SELFPAY | PROVIDERS: Admitting Provider Psychiatry & Neurology Psychiatry; Emergency Provider Emergency Medicine; Visit Provider Psychiatry & Neurology Psychiatry | DX: F43.25 Adjustment disorder with mixed disturbance of emotions and conduct (principal) | CPT/HCPCS: 90792; 99231; 99238 ==